=== PATIENT | female | born 1995 | race Caucasian/White ===

== ENCOUNTER 2018-11-18 19:13 | Emergency (ER) | payer SELFPAY ==
[~2018-11-18] VITALS: Ht 152.4 cm; Wt 61.7 kg
[2018-11-18 20:40] VITALS: BP 100/65
[2018-11-18] MEDS ORDERED: DexAMETHasone SOD PHOS 10MG/1ML VIAL INJ IM ONE (20:45)
[2018-11-18] MEDS ORDERED: cefTRIAXone SOD 1,000 MG VL IM ONE (20:45)
== END 2018-11-18 21:32 | disposition home or self-care (01) ==
LOC: ER 19:20
DX: S90.561A Insect bite (nonvenomous), right ankle, initial encounter (principal); W57.XXXA Bitten or stung by nonvenomous insect and other nonvenomous arthropods, initial encounter; Y93.89 Activity, other specified; Y99.8 Other external cause status; Y92.89 Other specified places as the place of occurrence of the external cause
CPT/HCPCS: 96372; 99283; J0696; J1100

== ENCOUNTER 2019-06-29 10:37 | Emergency (ER) | payer SELFPAY ==
[~2019-06-29] VITALS: Ht 152.4 cm; Wt 66.2 kg
[2019-06-29 10:56] VITALS: BP 121/75
== END 2019-06-29 11:27 | disposition home or self-care (01) ==
LOC: ER 10:37
DX: N39.0 Urinary tract infection, site not specified (principal); B00.9 Herpesviral infection, unspecified
CPT/HCPCS: 81002; 81025; 99283; J7030